=== PATIENT | male | born 1975 | race Two or more races ===

== ENCOUNTER 2018-07-28 09:02 | Day surgery (SDC) | payer OTHER ==
[2018-07-28] VITALS (8 sets, daily range): BP systolic 101–110; BP diastolic 71–80; PULSE 55–70; RESP 12–20; Ht 167.6 cm; Wt 61.5 kg
[~2018-07-28] VITALS: Ht 167.6 cm; Wt 61.5 kg
[2018-07-28] MEDS ORDERED: LIDOCAINE 1% (MPF) 5 ML VIAL ONE (10:15)
[2018-07-28] MEDS: SOD CHLORIDE 0.9% 1,000 ML IV SCH ×2 (10:18→13:19)
[2018-07-28] MEDS ORDERED: GELATIN 12MM X 7 MM SPONGE ONE (10:43)
[2018-07-28] MEDS ORDERED: FENTAnyl 50 MCG/ML VIAL ONE (10:43)
[2018-07-28] MEDS ORDERED: MIDAZOLAM 1 MG/ML 2 ML INJ ONE (10:44)
== END 2018-07-28 15:40 | disposition home or self-care (01) ==
LOC: SDS 09:02
PROVIDERS: ATTEND Internal Medicine
DX: I12.9 Hypertensive chronic kidney disease with stage 1 through stage 4 chronic kidney disease, or unspecified chronic kidney disease (principal); N18.9 Chronic kidney disease, unspecified
CPT/HCPCS: 50200; 77012; J2250; J3010; Z7610